=== PATIENT | female | born 1960 | race Hispanic/Latino ===

== ENCOUNTER 2020-02-02 08:49 | Emergency (ER) | payer OTHER ==
--- NOTE | 2020-02-02 09:45 | ER ---
Nurse's Notes [facility] Name: Shruthi Alvarado Age: 59 yrs Sex: Female : 1960 Arrival Date: 02/02/2020 Time: 08:52 Bed 13 Private MD: Diagnosis: Radiculopathy, lumbosacral region Presentation: 02/01 09:18 Chief complaint: Patient states: Patient complains of right leg pain since 01-29-20. em Patient applied ice and heat. Took three ibuprofen, two tylenol, one Baclofen 10mg , but nothing eases the pain. Patient denies injury to leg. Coronavirus screen: Client denies travel out of the [place] in the last 14 days. Ebola Screen: Patient negative for fever greater than or equal to 101.5 degrees Fahrenheit, and additional compatible Ebola Virus Disease symptoms Patient denies exposure to infectious person. Patient denies travel to an Ebola-affected area in the 21 days before illness onset. No symptoms or risks identified at this time. 09:18 Method Of Arrival: Ambulatory em 09:24 Acuity: [id number] 4 em Historical: - Allergies: 09:26 No Known Allergies; em - PMHx: 09:26 Degenerative disc disease; R rotator cuff injury; slipped disc in back; em - PSHx: 09:26 spinal fusion in lumbar back, L knee replacement; r shoulder rotary cuff repair; em - Social history:: Smoking status: Patient reports the use of cigarette tobacco products, denies chronic smoking, but will smoke occasionally. - Family history:: not pertinent. - Hospitalizations: : No recent hospitalization is reported. Screenin:18 Abuse screen: Denies threats or abuse. Nutritional screening: No deficits noted. em Tuberculosis screening: No symptoms or risk factors identified. Fall Risk None identified. Assessment: 09:18 General: Appears in no apparent distress. uncomfortable, Behavior is calm, cooperative, em Denies fever. Pain: Complains of pain in right leg Pain currently is 10 out of 10 on a pain scale. Pain began 2-3 days ago. Neuro: Level of Consciousness is awake, alert, obeys commands, Oriented to person, place, time, situation, Appropriate for age. Cardiovascular: Capillary refill < 3 seconds Patient's skin is warm and dry. Respiratory: Airway is patent Respiratory effort is even, unlabored, Respiratory pattern is regular, symmetrical. Derm: Skin is intact, is healthy with good turgor, Skin is pink, warm \T\ dry. Musculoskeletal: Capillary refill < 3 seconds, Range of motion: intact in all extremities. 10:20 Reassessment: Patient appears in no apparent distress at this time. Patient and/or em family updated on plan of care and expected duration. Pain level reassessed. Patient is alert, oriented x 3, equal unlabored respirations, skin warm/dry/pink. rates pain 6/10 Patient states feeling better. Vital Signs: 09:18 BP 159 / 83; Pulse 66; Resp 16; Temp 97.9(TE); Pulse Ox 98% on R/A; Weight 60.78 kg; em Height 5 ft. 4 in. (162.56 cm); Pain 10/10; 10:20 BP 157 / 73; Pulse 61; Resp 18; Pulse Ox 99% on R/A; Pain 6/10; em 09:18 Body Mass Index 23.00 (60.78 kg, 162.56 cm) em ED Course: 08:52 Patient arrived in ED. rg4 08:59 Francis Castillo MD is Attending Physician. rn 09:02 Price Bates, RUDDY is Primary Nurse. em 09:18 Patient has correct armband on for positive identification. Bed in low position. Call em light in reach. Side rails up X2. Pulse ox on. NIBP on. 09:25 Triage completed. em 09:27 Arm band placed on right arm. em 09:49 Extremity Venous Uni Ltd US In Process Unspecified. EDMS 10:28 No provider procedures requiring assistance completed. Patient did not have IV access em during this emergency room visit. Administered Medications: 09:59 Drug: Decadron 10 mg Route: IM; Site: right deltoid; em 10:28 Follow up: Response: No adverse reaction; Marked relief of symptoms; Pain is decreased em Outcome: 09:45 Discharge ordered by . rn 10:28 Discharged to home ambulatory. em 10:28 Condition: good 10:28 Discharge instructions given to patient, Instructed on discharge instructions, follow up and referral plans. medication usage, Demonstrated understanding of instructions, follow-up care, medications, Prescriptions given X 1. 10:30 Patient left the ED. em Signatures: Dispatcher [employer] EDMS Price Bates RN RN Francis Camarillo MD MD rn Garcia, Radha 4
--- NOTE | 2020-02-02 09:45 | EDPHYS ---
Physician Documentation [facility] Name: Shruthi Alvarado Age: 59 yrs Sex: Female : 1960 Arrival Date: 02/02/2020 Time: 08:52 Bed 13 Private MD: ED Physician Francis Castillo HPI: 02/01 09:42 This 59 yrs old Female presents to ER via Ambulatory with complaints of Leg rn Pain. 09:42 The patient presents with pain, that is acute. The complaints affect the right rn quadriceps. 09:42 Onset: The symptoms/episode began/occurred 4 day(s) ago. Modifying factors: The rn symptoms are alleviated by nothing. the symptoms are aggravated by nothing. Severity of symptoms: At their worst the symptoms were moderate, in the emergency department the symptoms are unchanged. The patient has experienced similar episodes in the past. Reports right thigh and leg pain, no trauma, no fever, no hx of DVT/PE, reports bad back and hx of sciatic nerve problems. . Historical: - Allergies: 09:26 No Known Allergies; em - PMHx: 09:26 Degenerative disc disease; R rotator cuff injury; slipped disc in back; em - PSHx: 09:26 spinal fusion in lumbar back, L knee replacement; r shoulder rotary cuff repair; em - Social history:: Smoking status: Patient reports the use of cigarette tobacco products, denies chronic smoking, but will smoke occasionally. - Family history:: not pertinent. - Hospitalizations: : No recent hospitalization is reported. ROS: 09:42 Constitutional: Negative for fever, chills, and weight loss, Back: + mild low back pain rn MS/Extremity: Negative for injury and deformity, Skin: Negative for injury, rash, and discoloration, Neuro: Negative for headache, weakness, numbness, tingling, and seizure. Exam: 09:42 Constitutional: This is a well developed, well nourished patient who is awake, alert, rn and in no acute distress. Ambulatory to room without difficulty. Skin: Warm, dry with normal turgor. Normal color with no rashes, no lesions, and no evidence of cellulitis. MS/ Extremity: Pulses equal, no cyanosis. Neurovascular intact. Full, normal range of motion. Equal circumference. No focal tenderness. Neuro: Awake and alert, Motor strength 5/5 in all extremities. Sensory grossly intact. Cerebellar exam normal. Antalgic gait. Vital Signs: 09:18 BP 159 / 83; Pulse 66; Resp 16; Temp 97.9(TE); Pulse Ox 98% on R/A; Weight 60.78 kg; em Height 5 ft. 4 in. (162.56 cm); Pain 10/10; 10:20 BP 157 / 73; Pulse 61; Resp 18; Pulse Ox 99% on R/A; Pain 6/10; em 09:18 Body Mass Index 23.00 (60.78 kg, 162.56 cm) em MDM: 08:59 Patient medically screened. rn 09:42 Differential diagnosis: arthritis, radiculopathy, DVT, muscle aches. Data reviewed: rn vital signs, nurses notes, radiologic studies, doppler, and as a result, I will discharge patient. Counseling: I had a detailed discussion with the patient and/or guardian regarding: the historical points, exam findings, and any diagnostic results supporting the discharge/admit diagnosis, radiology results, the need for outpatient follow up, to return to the emergency department if symptoms worsen or persist or if there are any questions or concerns that arise at home. Response to treatment: the patient's symptoms have mildly improved after treatment, and as a result, I will discharge patient. Special discussion: I discussed with the patient/guardian in detail that at this point there is no indication for admission to the hospital. It is understood, however, that if the symptoms persist or worsen the patient needs to return immediately for re-evaluation. ED course: Already on muscle relaxer, will add steroids for likely radiculopathy. . 02/01 09:11 Order name: Extremity Venous Uni Ltd ; Complete Time: 10:25 rn Administered Medications: :59 Drug: Decadron 10 mg Route: IM; Site: right deltoid; em 10:28 Follow up: Response: No adverse reaction; Marked relief of symptoms; Pain is decreased em Disposition: 02/02/20 09:45 Discharged to Home. Impression: Radiculopathy, lumbosacral region. - Condition is Stable. - Discharge Instructions: Lumbosacral Radiculopathy. - Prescriptions for Medrol ([place]) 4 mg Oral Tablets, Dose Pack - take 1 tablet by ORAL route as directed - follow package instructions; 1 packet. - Medication Reconciliation Form, Thank You Letter, Antibiotic Education, Prescription Opioid Use form. - Follow up: Private Physician; When: As needed; Reason: Recheck today's complaints, Re-evaluation by your physician. - Problem is new. - Symptoms have improved. Signatures: Dispatcher [employer] Price Mccarthy RN RN em Nieto, Roman, MD MD estate attorney: (The following items were deleted from the chart) 10:30 09:45 02/02/2020 09:45 Discharged to Home. Impression: Radiculopathy, lumbosacral em region. Condition is Stable. Forms are Medication Reconciliation Form, Thank You Letter, Antibiotic Education, Prescription Opioid Use. Follow up: Private Physician; When: As needed; Reason: Recheck today's complaints, Re-evaluation by your physician. Problem is new. Symptoms have improved. rn
--- OUTSIDE RECORDS SUMMARY | 2020-02-02 09:45 | XMS REPORT | Continuity of Care Document ---
:1960 Author Organization [facility] t Address [address] [place] [address] Dr. Romo [address] [place] [id number] Care Team Providers Name Role Phone Unavailable Unavailable Unavailable Problems This patient has no known problems. Allergies, Adverse Reactions, Alerts This patient has no known allergies or adverse reactions. Medications This patient has no known medications. Procedures This patient has no known procedures. Results This patient has no known results.
[2020-02-02] MEDS ORDERED: dexAMETHasone 10 MG/ML VIAL ONE (09:49)
--- NOTE | 2020-02-02 10:13 | RAD REPORT ---
EXAM DESCRIPTION: US - Extremity Venous Uni Ltd - 02/02/2020 9:49 am CLINICAL HISTORY: PAIN Leg swelling and edema. COMPARISON: No comparisons FINDINGS: Right lower extremity venous system was interrogated with Doppler technique. Normal flow, compressibility and augmentation was noted. There is no DVT present. IMPRESSION: No evidence of right lower extremity deep venous thrombosis.
[2020-02-02 10:34] VITALS: TEMP 97.9
[2020-02-02 10:35] VITALS: BP 157/73; O2SAT 99
== END 2020-02-02 10:30 | disposition home or self-care (01) ==
LOC: ER 08:49
DX: M54.17 Radiculopathy, lumbosacral region (principal); F17.210 Nicotine dependence, cigarettes, uncomplicated; Z96.652 Presence of left artificial knee joint
CPT/HCPCS: 93971; 96372; 99284; J1100